=== PATIENT | male | born 1970 | race Hispanic/Latino ===

== ENCOUNTER 2017-04-03 14:28 | Outpatient (CLI) | payer OTHER | END 2017-04-03 14:29 | disposition home or self-care (01) | LOC: LABHHL 14:28 | PROVIDERS: ATTEND Otolaryngology | DX: K14.8 Other diseases of tongue (principal); K14.3 Hypertrophy of tongue papillae; R23.4 Changes in skin texture | CPT/HCPCS: 88305 ==